=== PATIENT | male | born 1965 | race Caucasian/White ===

== ENCOUNTER 2017-12-11 08:14 | Day surgery (SDC) | payer BC ==
[2017-12-11] MEDS ORDERED: Lactated Ringer's 500 ML IV ONE (08:27)
[2017-12-11 08:55] VITALS: TEMP 97
[2017-12-11] MEDS ORDERED: Propofol 10 mg/ml Inj (20 ML) ONE (10:06)
[2017-12-11 11:06] VITALS: BP 111/64; PULSE 58; RESP 18; O2SAT 100
== END 2017-12-11 11:08 | disposition home or self-care (01) ==
LOC: H.ENDO 08:14
PROVIDERS: ATTEND Internal Medicine Gastroenterology
DX: Z12.11 Encounter for screening for malignant neoplasm of colon (principal); K64.0 First degree hemorrhoids
CPT/HCPCS: 45378; J2001; J2704; J7120